=== PATIENT | male | born 1970 | race Caucasian/White ===

== ENCOUNTER 2016-09-06 01:13 | Emergency (ER) | payer OTHER ==
[~2016-09-06] VITALS: Ht 193 cm; Wt 113.6 kg
[2016-09-06 01:15] VITALS: BP 126/96; PULSE 105; RESP 16; O2SAT 99
--- NOTE | 2016-09-06 01:19 | ED.REPORT ---
HPI-Chest Pain 40 and Over Date of Service Sep 06, 2016 ED Provider: Darius Mclean MD Patient is a 45 year old male with a history of atrial fibrillation, multiple cardioversions, ablation x2, hyperlipidemia, CAD, and GERD presenting to the ED c/o atrial fibrillation onset today at 15:30. His rate was 220 at home and dropped to the low 100 to 150 after a dose of Lopressor. His normal heart rate is in the 60's. The pt denies chest pain or shortness of breath, and states that he has not had an episode of atrial fibrillation in quite some time. His last meal was at 18:00. Nursing Notes Stated Complaint: AFIB Nursing Notes Reviewed: Yes Allergies: Coded Allergies: No Known Allergies (Unverified , 09/06/16) General Time Seen by MD: 01:18 Chief Complaint Other (atrial fibrillation) Hx Obtained From: Patient Arrived By: Walk-in Sudden in Onset?: Yes Onset Occurred: 9 - 12 hours ago Symptom Duration: Since onset Recent Healthcare: No recent doctor visit, No recent hospitalization Similar Sx Previous: Yes Past Medical History Past Medical History multiple cardioversions Reports: Coronary artery disease, GERD, Hyperlipidemia Reports: Atrial fibrillation Past Surgical History cardiac ablation X2 Smoking History Former Smoker Social History Alcohol Use: "Social" Drug Use: Denies drug use Other Social History: Good social support, Local resident 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 Physical Exam Initial Vital Signs Vital Signs (First) Date Time Temp Pulse Resp B/P Pulse Ox O2 Delivery O2 Flow Rate FiO2 09/06/16 01:15 36.4 105 16 126/96 99 Room Air Initial VS: Reviewed, Vital signs abnormal General/Constitutional: Awake, Alert, No acute distress Respiratory / Chest: Atraumatic, Breath sounds NL, Breath sounds = bilat, No respiratory distress Cardiovascular: Heart sounds NL, No gallop, No murmurs, No rubs Heart Rate / Rhythm: Positive: Tachycardia (mild, regular) Abdomen: Atraumatic, Soft, Non-tender Neck: Atraumatic, Full range of motion Back: Atraumatic, Full range of motion Lower Extremity / Pelvis / MS: Atraumatic, Full range of motion Skin: Atraumatic, Color NL, Warm, Dry Neurologic: Oriented X3, Speech NL, No motor deficits, No sensory deficits Psychiatric: Affect NL, Mood NL mentation normal Head / Eyes: Atraumatic, Normocephalic, PERRL, EOMI Interpretation & Diagnostics Lab Results Interpretation Test 09/06/16 01:25 Hold Purple Top Tube Received (Received) Hold Blue Top Tube Received (Received) Hold Red Top Tube Received (Received) Hold Enola Top Tube Received (Received) Hold Orr Top Tube Received (Received) ECG Interpretation Time: 01:25 Interpreted by: ED physician ECG Interpretation: Sinus rhythm with a rate of 58 Time: 02:08 Interpreted by: ED physician Procedures Electrical Cardioversion Time: :53 Procedure Performed by: ED physician Indication: Atrial fibrillation Consent / Setup / Site Prep: Consent from patient Procedural Sedation/Analgesia: Sedation: Propofol Joules: 200 Procedure Successful: Yes Post-Procedure Rhythm: Normal sinus rhythm Post-Procedure / Complications: No complications, Condition improved, Tolerated procedure well, Patient stable Re-Eval/Medical Decision Med Decision/Clinical Course 45-year-old male who has a history of recurrent atrial fibrillation and flutter. He has had 2 ablations in the past. He continues to have recurrent symptoms. His rhythm earlier in the day was atrial fibrillation with a rate of up to 200. He took extra Rythmol and metoprolol. He then began to develop a slower but still abnormal rate. On the EKG it appears that it must be atrial flutter with a 3-1 block with a rate of 104. Informed consent was obtained in the was sedated with propofol and cardioverted without difficulty. There is a distinct change in the rhythm and rate, please see EKGs. Source of Hx: Old records Time of Eval: 01:27 Re-Evaluation/Progress Note: Pt rechecked, who is informed of his EKG results and requests cardioversion. Time of Eval: 01:53 Patient Status: Condition improved Re-Evaluation/Progress Note: Pt rechecked and cardioversion is performed successfully. Pt tolerated the procedure well and there were no complications. Time of Eval: 02:15 Patient Status: Condition improved Re-Evaluation/Progress Note: Pt rechecked, who is awake and feeling well. He remains in normal sinus rhythm. The diagnosis and plan for discharge are discussed. The pt understands and agrees with the plan. All questions are addressed at this time. Counseled Regarding: Diagnosis, Lab results, Need for follow-up, When/why to return to ED Discharge & Departure Primary Impression: Atrial flutter Atrial flutter type: typical Qualified Code: I48.3 - Typical atrial flutter Additional Impression: Encounter for cardioversion procedure Disposition: Home Discharge Condition All VS Reviewed: Yes Condition: Stable Patient Instructions: Moderate Sedation (ED) Additional Instructions: You had atrial flutter with 3-1 conduction and a controlled rate of around 100. Your cardioverted using sedation with propofol 100 mg IV and synchronized cardioversion at 200 J. No complications. See sedation instruction sheet. Referrals: [facility] (PCP) Yoly Attestation Portions of this note were transcribed by Rizwana Ho & Sanchez Holm. I, Dr. Mclean personally performed the history, physical exam and medical decision-making; I reviewed and confirmed the accuracy of the information in the transcribed note. Signed by: Yoly Lazar, 09/06/2016 and 0424. copies to: [facility] Tavarez MD Sep 06, 2016 01:19 Rizwana Ho Sep 06, 2016 01:27 SANCHEZ HOLM Sep 06, 2016 04:08
[2016-09-06] MEDS ORDERED: Propofol 10 mg/mL 20 mL Inj IVPUSH ONE (01:30)
[2016-09-06 02:05] VITALS: BP 99/61; PULSE 57; RESP 14; O2SAT 96
[2016-09-06 03:15] VITALS: BP 92/55; PULSE 53; RESP 16; O2SAT 97
[2016-09-06 04:04] VITALS: BP 101/55; PULSE 54; RESP 15; O2SAT 96
== END 2016-09-06 04:05 | disposition home or self-care (01) ==
LOC: SED 01:16
DX: I48.3 Typical atrial flutter (principal); I48.91 Unspecified atrial fibrillation; I25.10 Atherosclerotic heart disease of native coronary artery without angina pectoris; K21.9 Gastro-esophageal reflux disease without esophagitis; E78.5 Hyperlipidemia, unspecified; Z29.8 Encounter for other specified prophylactic measures; Z87.891 Personal history of nicotine dependence; Z98.890 Other specified postprocedural states

== ENCOUNTER 2016-12-01 08:30 | Inpatient (IN) | payer OTHER ==
[~2016-12-01] VITALS: Ht 193 cm; Wt 114.8 kg
[2016-12-01] VITALS (7 sets, daily range): BP systolic 98–129; BP diastolic 61–83; PULSE 56–76; RESP 14–20; O2SAT 95–97
[2016-12-01] MEDS ORDERED: Alum-Mag Hydrox-Simeth 30 mL Suspension PO PRN (08:55)
[2016-12-01] MEDS ORDERED: Polyethylene Glycol (PEG) 17 Gm Powder PO PRN (08:55)
[2016-12-01] MEDS ORDERED: ASPI325T32 PO (09:01)
[2016-12-01] MEDS ORDERED: MULT1CAP33 PO (09:01)
[2016-12-01] MEDS ORDERED: OMEP20TA24 PO (09:02)
[2016-12-01] MEDS ORDERED: LIP40 PO (09:03)
[2016-12-01] MEDS ORDERED: DILT-5 PO (09:05)
[2016-12-01] MEDS ORDERED: PROP225T PO (09:05)
[2016-12-01 09:59] LABS: Magnesium 1.9 mg/dL (1.6-2.6)
--- NOTE | 2016-12-01 13:16 | HP ---
[address] [address] HISTORY AND PHYSICAL PATIENT: DYLAN SALAZAR : 1970 MR#: [id number] ADMIT: 12/01/2016 JOB ID: [id number] REASON FOR ADMISSION: To start new antiarrhythmic therapy for atrial fibrillation with sotalol. CHIEF COMPLAINT: Rapid palpitations and fatigue when in atrial fibrillation. HISTORY: The patient is a pleasant 46-year-old man with a structurally normal heart who has had previous ablation for atrial fibrillation and afterward had the emergence of an atypical atrial flutter. He had been maintained on propafenone for quite some time, but since this past November he reports having three episodes of atrial fibrillation. During atrial fibrillation he gets excessively fast heart rates, even up to 200 BPM, and he is symptomatic with palpitations, fatigue, and lightheadedness. He is no longer satisfied with the control of atrial fibrillation afforded by propafenone and would like to switch to a different antiarrhythmic. At Dr. Cantrell's recommendation he will be started on sotalol and is here for a 2-1/2 day stay. Today he feels well and has a regular rate and rhythm. He denies any palpitations, shortness of breath, dizziness, edema, or stomach upset. PAST MEDICAL HISTORY: Paroxysmal atrial fibrillation with two previous fibrillation ablation procedures in 2013. He also has a history of nonobstructive CAD. ALLERGIES: No known medication allergies. 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 REVIEW OF SYSTEMS: In general, no complaints. Doing well and feels well today. Cardiac: No palpitations or chest pain. : No hematuria. Skin: No rash. No easy bleeding or bruising. GI: No blood in stool and no heartburn. Neuro: No dizziness. Psych: No anxiety. Respiratory: No dyspnea. Constitutional: No weight gain or loss. Eyes: No visual changes. Musculoskeletal: No weakness. Endocrine: No polydipsia. VITAL SIGNS: BP 129/83, pulse regular at 76, respirations 20, oximetry 96% on room air. PHYSICAL EXAMINATION: The patient is a well-developed, well-nourished, healthy-appearing man in his mid 40s and in no distress. Eyes: Conjunctiva and pupils appeared normal, normal eye movements. Ears: Wears a hearing aid on the left. Neck: Supple. Carotid pulses brisk and equal. No bruits, no JVD. Chest: Breath sounds full and clear in all saunders, and no rales. Cardiac: Regular rate and rhythm. No murmurs. Abdomen: Soft, nontender. Bowel sounds are active. No organomegaly. Extremities: Moving all four extremities well. Pulses are intact. There is no cyanosis. Psychiatric: Well oriented to place, person, and situation, and his mood and affect are appropriate. LABORATORY DATA: Serum chemistry today includes potassium 3.8, creatinine 0.88, magnesium 1.9, among other values. The 12-lead ECG shows normal sinus rhythm with one PVC and QT interval of 405 msec. ASSESSMENT: A patient with paroxysmal atrial fibrillation treated with previous ablation in 2013 who has continued having occasional atypical atrial flutter episodes with rapid rates even up to 200 BPM. He was previously managed with propafenone, but that was now stopped one week ago and we will start him on sotalol for new antiarrhythmic. PLAN: Start sotalol at 80 mg b.i.d., record a 12-lead ECG 2 hours after each dose, and adjust sotalol dose as needed. He is currently in sinus rhythm, so will not require cardioversion during this hospitalization.u
--- NOTE | 2016-12-01 18:01 | NUR ---
Admit note- Patient arrived to [facility] for Sotolol therapy. Alert and oriented. Denies complaints. Tele-sinus rhythm 70's with occasional PVC"s. Patient's heart rate dropped into the 50's when asleep. QT interval monitored per ECG and tele with no significant change.
[2016-12-02] VITALS (7 sets, daily range): BP systolic 103–124; BP diastolic 69–85; PULSE 50–65; RESP 16–20; O2SAT 95–99
--- NOTE | 2016-12-02 01:22 | NUR ---
Sobess/EKG/Tele Dosed Sotolol @ 2044, EKG @ 2300, QT 435. A&O x3 using call light appropriately, Saline locked, Room air. Tele: SR- 57/ Jordi
[2016-12-02] MEDS: Pantoprazole 40 mg ER24 Tablet PO SCH (06:22)
--- NOTE | 2016-12-02 08:02 | NUR ---
Social Work: Screen D: Per EMR review, pt is a 46 year old male admitted for Sotolol loading. Pt is [employer] insurance. PCP is through the [facility] primary [facility]. NOK is Diana Glass, , . Advanced directives not completed- staff climate scientist provided with information to give to patient. Readmit score is low, 1/8. Patient does not screen in for intensive case management at this time. Pt lives with his in [place]. He is I at baseline continues to be I during admission and works at the [employer] at a PA-C. No social work needs or barriers have been identified at this time. No Concerns about patient's capacity for self-care identified. A: Pt who is I at baseline. P: Anticipate pt to likely discharge home with his once medically stable; ELECTRIC INSTALLER to continue to follow to assess for unmet needs should they arise. FERNANDO Martinez
--- NOTE | 2016-12-02 10:05 | PROG NOTE ---
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 He was started yesterday on sotalol for treatment of atrial fibrillation. He has no symptom complaints today and no perceptible side effects from the sotalol. OBJECTIVE: Vital signs: BP 111/70, pulse rates have been in the 50s and low 60s, pulse oximetry 97% on room air. His 12-lead ECG two hours after the second dose of sotalol last night showed a sinus rate of 53 bpm, QT 435 milliseconds and QTC 409 milliseconds. His physical exam is unchanged from yesterday. ASSESSMENT: The patient starting sotalol 80 mg twice daily with no side effects. He has maintained sinus rhythm and a QT interval has not prolonged excessively. He has had mild sinus bradycardia but has been asymptomatic. PLAN: Continue sotalol 80 mg b.i.d. and at this point not increase the dose as he has some sinus enriqueta and low normal BP. Continue recording 12-lead ECG after each sotalol dose and continue patient on telemetry monitoring. We will plan on discharging him home tomorrow morning.
[2016-12-02] MEDS ORDERED: MAGN500T PO (10:59)
--- NOTE | 2016-12-02 17:54 | NUR ---
Sotolol/Activity Patient A&Ox3. VSS. Received sotolol per order. QTc 409 on EKG. Tele SR in the 60s. Patient ambulating independently in loaiza. Denies pain/discomfort. Patient resting in bed, call light within reach.
--- NOTE | 2016-12-03 00:35 | NUR ---
QTC/Sotalol On sotalol load, EKG/QTc 416, resting comfortably in bed, 10 Mg Ambien to sleep , ambulating at will . A&O x3 using call light appropriately, Room Air, Saline locked,Tele: SR -[id number] , at times <60
[2016-12-03 05:03] VITALS: BP 108/64; PULSE 50; RESP 15; O2SAT 96
[2016-12-03 05:50] VITALS: PULSE 47
[2016-12-03] MEDS: Pantoprazole 40 mg ER24 Tablet PO SCH (06:52)
[2016-12-03 06:53] VITALS: BP 111/74; PULSE 54; RESP 16; O2SAT 96
[2016-12-03 08:00] VITALS: PULSE 54
[2016-12-03 08:10] VITALS: BP 115/76; PULSE 55; RESP 14; O2SAT 96
--- NOTE | 2016-12-03 09:24 | PCM.DIMED ---
Discharge Instructions Date of Service Dec 03, 2016 Dates of Hospitalization Dec 01, 2016 at 08:30 Discharge Diagnosis Discharge Diagnosis Paroxysmal Atrial Fibrillation Diet Discharge Diet: No restrictions Activity Discharge Activity: No restrictions Call your provider Call your provider for: Other (Tachycardia, syncope or near syncope) Patient Instructions Mid-level Provider (F9): Charbel Salomon PA-C Follow-up with Mid-level in: 5 weeks (Appt. with Charbel Salomon PA-C on at 1:40 (arrive at 1:20)) Charbel Salomon PA-C Dec 03, 2016 09:24
[2016-12-03] MEDS ORDERED: BET80 PO (09:30)
--- NOTE | 2016-12-03 09:40 | NUR ---
Activity Patient ambulated into shower independently. EKG complete, QTC within 15% range per RT.
--- NOTE | 2016-12-03 09:55 | NUR ---
Discharge Patient given all discharge instructions and information including follow-up appointments and Sotolol education. Verbalized all understanding, denied any further questions. IV D/C'd, intact. No s/s upon discharge. Ambulated off floor.
--- NOTE | 2016-12-06 10:41 | DIS ---
[address] [address] DISCHARGE SUMMARY PATIENT: DYLAN GLASS : 1970 MR#: [id number] ADMIT: 12/01/2016 JOB ID: [id number] DIS: 12/03/2016 DATE OF SERVICE: 12/03/2016 REASON FOR ADMISSION: New antiarrhythmic medical therapy with sotalol for treatment of atrial fibrillation. CHIEF COMPLAINT: The patient has no symptom complaints on date of discharge. 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 Later he had the emergence of an atypical atrial flutter and that had been managed with propafenone for a few years, but he began having more frequent episodes of either the atypical flutter or atrial fibrillation, it is unclear, and he wished to be changed to a different antiarrhythmic medication according to his previous discussions with Dr. Cantrell. With the arrhythmias, he has experienced heart rates up to 200 BPM with symptoms of palpitations, fatigue, and lightheadedness. He was admitted to the hospital for 2-1/2 days to start sotalol for new antiarrhythmic therapy of atrial fibrillation. COURSE IN HOSPITAL: Mr. Glass was admitted to the [facility] and after cellular phone repairer was attached, baseline ECG and lab data were obtained. The initial ECG showed sinus rhythm with normal intervals and a QTc of 407 msec. Baseline serum chemistry shows sodium 142, potassium 3.8, creatinine 0.88, and magnesium 1.9 among other normal results. Over the next 2-1/2 days he received five doses of sotalol 50 mg b.i.d. and his 12 lead ECGs recorded two hours after each dose showed sinus rhythm and mild sinus bradycardia and gradual increase in the QTc with a final ECG showing a QTc of 416 msec. Cardiac telemetry did not show any occurrences of nonsustained ventricular tachycardia, and he had no pauses or marked bradycardia. The patient did not feel he had any side effects from the medication and felt well for discharge home on the final day. He had no symptoms from the mild bradycardia. His BPs averaged around 110/74 and pulse oximetry was 96% on room air. He denies any lightheadedness, nausea, or shortness of breath. DISPOSITION: The patient was discharged home in good condition with a followup appointment at the [facility] office in one month. He has no activity restrictions and will continue with a heart healthy diet. DISCHARGE MEDICATIONS: 1. Sotalol 80 mg b.i.d. 2. Aspirin 325 mg daily. 3. Atorvastatin 40 mg daily. 4. Magnesium oxide 500 mg daily. 5. Multivitamin one daily. 6. Omeprazole 20 mg daily. FINAL DIAGNOSES: 1. History of atrial fibrillation, status post ablation. 2. Atypical atrial flutter. 3. Paroxysmal arrhythmias despite prior treatment with propafenone. 4. History of nonobstructive coronary artery disease.
== END 2016-12-03 09:55 | disposition home or self-care (01) | DRG 310 ==
LOC: PCC 08:30
PROVIDERS: ADMIT Internal Medicine Cardiovascular Disease; ATTEND Internal Medicine Cardiovascular Disease
DX: I48.0 Paroxysmal atrial fibrillation (principal); I48.4 Atypical atrial flutter; Z98.890 Other specified postprocedural states; I25.10 Atherosclerotic heart disease of native coronary artery without angina pectoris